=== PATIENT | male | born 1995 | race African-American/Black ===

== ENCOUNTER 2016-09-14 11:24 | Emergency (ER) | payer SELFPAY ==
--- NOTE | 2016-09-14 11:47 | ERRECORD ---
[facility] EMERGENCY RECORD HPI URI (11:36 MBRI) CHIEF COMPLAINT: Patient presents for evaluation of sore throat, Patient presents for evaluation of nasal congestion, Patient presents for evaluation of cough. HISTORIAN: History provided by patient. LOCATION: Symptoms are generalized. QUALITY: Pain is dull in nature, described as aching. SEVERITY: Maximum severity of symptoms mild, Currently symptoms are mild. TIME COURSE: Gradual onset of symptoms, 3, days priror to arrival, There has been no change in the patient's symptoms over time. ASSOCIATED WITH: No associated chest pain, No associated chills, No associated fever, No associated headache, No associated neck pain, No associated shortness of breath. EXACERBATED BY: Patient's condition exacerbated by nothing. RELIEVED BY: Patient's condition relieved by nothing. ROS (11:36 MBRI) CONSTITUTIONAL: Negative constitutional review of systems, Historian denies chills, denies fever. EYES: Negative eye review of systems. ENT: Historian denies otalgia, reports rhinorrhea, reports sinus pain, reports sore throat. CARDIOVASCULAR: Historian denies chest pain, denies dyspnea on exertion. RESPIRATORY: Historian reports cough, denies shortness of breath, reports sputum, denies stridor, denies wheezing. GI: Negative gastrointestinal review of systems, Historian denies abdominal pain, denies diarrhea, denies nausea, denies vomiting. MUSCULOSKELETAL: Historian denies injury, Denies any musculoskeletal pain. SKIN: Negative skin review of systems, Historian denies skin changes. PAST MEDICAL HISTORY (11:30 KMOR) MEDICAL HISTORY: Flu vaccine not up to date, Tetanus immunization up to date, Pneumococcal vaccine not up to date, No past medical history,. MALE SURGICAL HISTORY: Patient has no surgical history. PSYCHIATRIC HISTORY: No previous psychiatric history. SOCIAL HISTORY: Patient denies alcohol use, Patient denies drug use, Patient has no smoking history. KNOWN ALLERGIES No Known Drug Allergies CURRENT MEDICATIONS (11:28 KMOR) None &a-1R&a+25V*p+0X*[id number]*c202B*c15G*c2P*p-0X&a-25V&a+1R Name: Venancio, Jeanne Song : 1995 M21 MedRec: [id number] AcctNum: [id number] Prepared: WedSep 14, 2016 11:45 by Interface Page 1 of 3 pMD [facility] EMERGENCY RECORD VITAL SIGNS (11:28 KMOR) VITAL SIGNS: BP: 123/78, Pulse: 74, Resp: 18, Temp: 98.1 (Oral), Pain: 0, O2 sat: 98 on Room Air, Time: 09/14/2016 11:28. PHYSICAL EXAM (11:36 MBRI) CONSTITUTIONAL: Vital Signs Reviewed, Nursing notes reviewed. HEAD: Head exam included findings of head atraumatic, normocephalic. EYES: Eye exam included findings of eyelids normal to inspection, Pupils equally round and reactive to light, Extraocular muscles intact. ENT: Ear exam normal, external ear normal, tympanic membranes normal, Pharynx exam normal. NECK: Neck exam normal, no cervical adenopathy, no tenderness. RESPIRATORY CHEST: Respiratory exam included findings of no respiratory distress, Breath sounds clear, No wheezing, No rales, No rhonchi. CARDIOVASCULAR: Cardiovascular exam included findings of heart rate regular rate and rhythm, Heart sounds normal, Carotids normal. DOCTOR NOTES (11:39 MBRI) TEXT: After evaluation the patient appears to be resting comfortably. No resp distress and lung exam was clear. No impending resp failure or airway issues are present at this time. Pt appears to have symptoms consistent with viral respiratory illness and I have rec symptomatic type treatments. I have discussed the continued treatment with the patient and have answered questions. I have discussed the strict reasons for return and follow-up and medication needs have been addressed. The patient is stable for d/c home at this time. PROBLEM LIST No recorded problems DIAGNOSIS (11:40 MBRI) FINAL: PRIMARY: Acute URI. PRESCRIPTION (11:38 MBRI) Motrin: TABLET : 800 mg : ORAL : Quantity: 1 Unit: tab(s) Route: ORAL Schedule: every 8 hours PRN Dispense: 30 May substitute. Refills: No Refills . NOTES: No refills. Mucinex DM: TABLET,EXTENDED RELEASE MULTIPHASE 12 HR : 1,200 mg-60 mg : ORAL : Quantity: 1 Unit: tab(s) Route: ORAL Schedule: every 12 hours Dispense: 20 May substitute. Refills: No Refills . NOTES: ^s=No refills No refills. DISPOSITION &a-1R&a+25V*p+0X*r4487Q*c202B*c15G*c2P*p-0X&a-25V&a+1R Name: Jeanne Craft : 1995 M21 MedRec: [id number] AcctNum: [id number] Prepared: WedSep 14, 2016 11:45 by Interface Page 2 of 3 pMD [facility] EMERGENCY RECORD PATIENT: Disposition Type: Discharge, Disposition: *Discharge Home, Condition: Good. (11:40 MBRI) Patient left the department. (11:44 LGIB) Nino: KMOR=ASAEL Auguste, Teresita LGIB=ASAEL Spencer, Lenora MBRI=DO Morales Matthew &a-1R&a+25V*p+0X*e3338E*c202B*c15G*c2P*p-0X&a-25V&a+1R Name: Jeanne Craft : 1995 M21 MedRec: [id number] AcctNum: [id number] Prepared: WedSep 14, 2016 11:45 by Interface Page 3 of 3 pMD MTDD
--- NOTE | 2016-09-14 11:47 | PICIS ---
[facility] EMERGENCY RECORD TRIAGE (WedSep 14, 2016 11:28 KMOR) TRIAGE NOTES: Cough and congestion, chest pain and runny nose for 2 days. (WedSep 14, 2016 11:28 KMOR) PATIENT: NAME: Jeanne Craft, AGE: 21, GENDER: male, : Wed1995, TIME OF GREET: WedSep 14, 2016 11:25, PREFERRED LANGUAGE: Georgian, ETHNICITY: Not or , ECODE BILLING MAP: [facility], SSN: [id number], Zip Code: [address], KG WEIGHT: 79.38, PHONE: , , , PERSON ID: [id number], PAYMENT: [employer] Self Pay, PCP: DO HINTON JOHN SCOTT. (WedSep 14, 2016 11:28 KMOR) COMPLAINT: Cold symptoms. (WedSep 14, 2016 11:28 KMOR) ADMISSION: URGENCY: 4 Non Urgent, ADMISSION SOURCE: Home, TRANSPORT: CAR, BED: ER -02. (WedSep 14, 2016 11:28 KMOR) ASSESSMENT: Assessment: A&OX4. RR EVEN AND UNLABORED., Symptoms began 2 days ago. (11:30 KMOR) PAIN: No complaint of pain. (11:30 KMOR) IMMUNIZATIONS: Flu vaccine not up to date, Tetanus immunization up to date, Pneumococcal vaccine not up to date. (11:30 KMOR) SIRS SCORING: Heart Rate 55-109 (0), Temp range 96.8-101.1 (0), respiratory rate 12-24 (0), Mental Status altered: no (0), Infection or Suspected Infection: No. (11:30 KMOR) TRIAGE SCREENING: Patient denies suicidal ideation, Patient denies presence of domestic violence. (11:30 KMOR) TREATMENTS IN PROGRESS: Medications Given, None today. (11:30 KMOR) PROVIDERS: TRIAGE NURSE: Teresita Auguste RN. (WedSep 14, 2016 11:28 KMOR) VITAL SIGNS: BP 123/78, Pulse 74, Resp 18, Temp 98.1, (Oral), Pain 0, O2 Sat 98, on Room Air, Time 09/14/2016 11:28. (11:28 KMOR) PREVIOUS VISIT ALLERGIES: No Known Drug Allergies. (WedSep 14, 2016 11:28 KMOR) No Known Drug Allergies. (11:30 KMOR) KNOWN ALLERGIES No Known Drug Allergies CURRENT MEDICATIONS (11:28 KMOR) None VITAL SIGNS (11:28 KMOR) VITAL SIGNS: BP: 123/78, Pulse: 74, Resp: 18, Temp: 98.1 (Oral), Pain: 0, O2 sat: 98 on Room Air, Time: 09/14/2016 11:28. NURSING ASSESSMENT: RESPIRATORY /CHEST (11:31 LGIB) CONSTITUTIONAL: Complex assessment performed, Patient arrives ambulatory, Gait steady, History obtained from patient, Patient appears comfortable, Patient cooperative, Patient alert, Oriented to person, place and time, Skin warm, Skin dry, Skin normal in color, Mucous membranes pink, Mucous membranes moist, Patient is &a-1R&a+25V*p+0X*y5177Y*c202B*c15G*c2P*p-0X&a-25V&a+1R Name: Jeanne Craft : 1995 M21 MedRec: [id number] AcctNum: [id number] Prepared: WedSep 14, 2016 11:45 by Interface Page 1 of 4 pMD [facility] EMERGENCY RECORD well-groomed, Patient complains of cough, runny nose. PAIN: Patient rates pain as 0 out of 10. RESPIRATORY/CHEST: Breath sounds clear, Respiratory assessment findings include respiratory effort easy, Respirations regular, Conversing normally, Neck and chest exam findings include trachea midline, Chest expansion equal, Chest movement symmetrical, no signs of distress, no retractions noted, no cyanosis, Associated with cough, productive of, green sputum, no associated fever. ENT: Nasal assessment findings include nose normal to inspection, Mouth and throat assessment findings include mouth inspection normal. SAFETY: Side rails up, Cart/Stretcher in lowest position, Call light within reach, Hospital ID band on. NURSING PROCEDURE: DISCHARGE NOTE (11:44 LGIB) DISCHARGE: Patient discharged to home, ambulating without assistance, driving self, unaccompanied, Summary of Care printed/ provided, Patient requested and was provided an electronic copy of Discharge Instructions, Discharge instructions given to patient, Simple or moderate discharge teaching performed, Prescriptions given and instructions on side effects given, Above person(s) verbalized understanding of discharge instructions and follow-up care, Patient treated and evaluated by physician. BELONGINGS: Belongings and valuables with patient at time of discharge include:, Belongings remain with patient, Valuables remain with patient. NURSING PROCEDURE: NURSE NOTES (11:32 LGIB) NURSES NOTES: Patient examined by physician. HPI URI (11:36 MBRI) CHIEF COMPLAINT: Patient presents for evaluation of sore throat, Patient presents for evaluation of nasal congestion, Patient presents for evaluation of cough. HISTORIAN: History provided by patient. LOCATION: Symptoms are generalized. QUALITY: Pain is dull in nature, described as aching. SEVERITY: Maximum severity of symptoms mild, Currently symptoms are mild. TIME COURSE: Gradual onset of symptoms, 3, days priror to arrival, There has been no change in the patient's symptoms over time. ASSOCIATED WITH: No associated chest pain, No associated chills, No associated fever, No associated headache, No associated neck pain, No associated shortness of breath. EXACERBATED BY: Patient's condition exacerbated by nothing. RELIEVED BY: Patient's condition relieved by nothing. ROS (11:36 MBRI) CONSTITUTIONAL: Negative constitutional review of systems, Historian denies chills, denies fever. &a-1R&a+25V*p+0X*e2270N*c202B*c15G*c2P*p-0X&a-25V&a+1R Name: Jeanne Craft : 1995 M21 MedRec: [id number] AcctNum: [id number] Prepared: WedSep 14, 2016 11:45 by Interface Page 2 of 4 pMD [facility] EMERGENCY RECORD EYES: Negative eye review of systems. ENT: Historian denies otalgia, reports rhinorrhea, reports sinus pain, reports sore throat. CARDIOVASCULAR: Historian denies chest pain, denies dyspnea on exertion. RESPIRATORY: Historian reports cough, denies shortness of breath, reports sputum, denies stridor, denies wheezing. GI: Negative gastrointestinal review of systems, Historian denies abdominal pain, denies diarrhea, denies nausea, denies vomiting. MUSCULOSKELETAL: Historian denies injury, Denies any musculoskeletal pain. SKIN: Negative skin review of systems, Historian denies skin changes. PAST MEDICAL HISTORY (11:30 KMOR) MEDICAL HISTORY: Flu vaccine not up to date, Tetanus immunization up to date, Pneumococcal vaccine not up to date, No past medical history,. MALE SURGICAL HISTORY: Patient has no surgical history. PSYCHIATRIC HISTORY: No previous psychiatric history. SOCIAL HISTORY: Patient denies alcohol use, Patient denies drug use, Patient has no smoking history. PHYSICAL EXAM (11:36 MBRI) CONSTITUTIONAL: Vital Signs Reviewed, Nursing notes reviewed. HEAD: Head exam included findings of head atraumatic, normocephalic. EYES: Eye exam included findings of eyelids normal to inspection, Pupils equally round and reactive to light, Extraocular muscles intact. ENT: Ear exam normal, external ear normal, tympanic membranes normal, Pharynx exam normal. NECK: Neck exam normal, no cervical adenopathy, no tenderness. RESPIRATORY CHEST: Respiratory exam included findings of no respiratory distress, Breath sounds clear, No wheezing, No rales, No rhonchi. CARDIOVASCULAR: Cardiovascular exam included findings of heart rate regular rate and rhythm, Heart sounds normal, Carotids normal. EVENTS TRANSFER: Triage to Emergency Emergency Room -02. (WedSep 14, 2016 11:28 KMOR) Removed from Emergency Emergency Room -02. (11:44 LGIB) O2SAT INTERPRETATION (11:37 MBRI) O2SAT: Oxygen saturation interpretation: Normal. DOCTOR NOTES (11:39 MBRI) TEXT: After evaluation the patient appears to be resting &a-1R&a+25V*p+0X*p4045D*c202B*c15G*c2P*p-0X&a-25V&a+1R Name: Jeanne Craft : 1995 M21 MedRec: [id number] AcctNum: [id number] Prepared: WedSep 14, 2016 11:45 by Interface Page 3 of 4 pMD [facility] EMERGENCY RECORD comfortably. No resp distress and lung exam was clear. No impending resp failure or airway issues are present at this time. Pt appears to have symptoms consistent with viral respiratory illness and I have rec symptomatic type treatments. I have discussed the continued treatment with the patient and have answered questions. I have discussed the strict reasons for return and follow-up and medication needs have been addressed. The patient is stable for d/c home at this time. PROBLEM LIST No recorded problems DIAGNOSIS (11:40 MBRI) FINAL: PRIMARY: Acute URI. DISPOSITION PATIENT: Disposition Type: Discharge, Disposition: *Discharge Home, Condition: Good. (11:40 MBRI) Patient left the department. (11:44 LGIB) INSTRUCTION (11:41 LGIB) DISCHARGE: URI NO ANTIBIOTIC TREATMENT ADULT. FOLLOWUP: DO MARY JANE, CHACE PINEDA, [facility], [address] [place] [address], , Follow up with Primary Care Physician as needed. SPECIAL: Please return for any further issues or concerns, we would be happy to see you. We hope you feel better soon. Follow-up with your primary physician as needed Tylenol or Advil for Pain Take Tylenol or Advil for Fever above 101 Oral. PRESCRIPTION (11:38 MBRI) Motrin: TABLET : 800 mg : ORAL : Quantity: 1 Unit: tab(s) Route: ORAL Schedule: every 8 hours PRN Dispense: 30 May substitute. Refills: No Refills . NOTES: No refills. Mucinex DM: TABLET,EXTENDED RELEASE MULTIPHASE 12 HR : 1,200 mg-60 mg : ORAL : Quantity: 1 Unit: tab(s) Route: ORAL Schedule: every 12 hours Dispense: 20 May substitute. Refills: No Refills . NOTES: ^s=No refills No refills. Nino: KMOR=ASAEL Auguste, Teresita LGIB=ASAEL Spencer, Lenora MBRI=DO Morales Matthew &a-1R&a+25V*p+0X*h2541H*c202B*c15G*c2P*p-0X&a-25V&a+1R Name: VenancioJeanne : 1995 M21 MedRec: [id number] AcctNum: [id number] Prepared: WedSep 14, 2016 11:45 by Interface Page 4 of 4 pMD [facility] MEDICATION RECONCILIATION You were seen in the Emergency Department on: WedSep 14, 2016 KNOWN ALLERGIES No Known Drug Allergies HOME MEDICATIONS None Notes from the emergency department Reviewed with patient PRESCRIPTIONS (2) Printed (2) Motrin : TABLET : 800 mg : ORAL Quantity: 1, Unit: tab(s), Route: ORAL, Schedule: every 8 hours PRN, Dispense: 30 &a-1R&a+25V*p+0X*i0165U*c202B*c15G*c2P*p-0X&a-25V&a+1R Name: Jeanne Craft : 1995 M21 MedRec: [id number] AcctNum: [id number] Prepared: WedSep 14, 2016 11:45 by Interface pMNarayan [place]
== END 2016-09-14 11:45 | disposition home or self-care (01) ==
LOC: BURERS 11:24
DX: J06.9 Acute upper respiratory infection, unspecified (principal)
CPT/HCPCS: 99283

== ENCOUNTER 2017-12-06 22:48 | Emergency (ER) | payer SELFPAY ==
[2017-12-06] MEDS ORDERED: Tobramycin Sulfate 0.3% Ophth Susp 5 ml Bottle ONE (23:02)
== END 2017-12-06 23:15 | disposition home or self-care (01) ==
LOC: BURERS 22:48
DX: S01.112A Laceration without foreign body of left eyelid and periocular area, initial encounter (principal); W22.8XXA Striking against or struck by other objects, initial encounter
CPT/HCPCS: 99282

== ENCOUNTER 2018-12-19 22:23 | Emergency (ER) | payer BC, SELFPAY | END 2018-12-19 22:40 | disposition home or self-care (01) | LOC: BURERS 22:23 | DX: B86 Scabies (principal) | CPT/HCPCS: 99282 ==

== ENCOUNTER 2019-05-29 17:23 | Emergency (ER) | payer BC, SELFPAY ==
[2019-05-29] MEDS ORDERED: Ibuprofen 800 MG TAB ONE (18:12)
[2019-05-29] MEDS ORDERED: predniSONE 20 MG TAB ONE (18:12)
== END 2019-05-29 18:17 | disposition home or self-care (01) ==
LOC: BURERS 17:23
DX: J11.1 Influenza due to unidentified influenza virus with other respiratory manifestations (principal)
CPT/HCPCS: 99283; J7512

== ENCOUNTER 2020-04-03 12:33 | Emergency (ER) | payer OTHER, SELFPAY ==
[2020-04-03 17:52] LABS: Syphilis Antibody Nonreactive (Nonreactive); Syphilis Antibody Index 0.07 S/CO (<1.00 Non-Reactive)
[2020-04-04 13:47] LABS: SARS-CoV-2 MS2 Positive; SARS-CoV-2 N Gene Negative; SARS-CoV-2 S Gene Negative; SARS-CoV-2 by NAA Not Detected (NotDetected); SARS-CoV-2 orf1ab Negative
[2020-04-04 22:55] LABS: Chlam.trachomatis by PCR,Urine Not Detected (NotDetected)
== END 2020-04-03 13:50 | disposition home or self-care (01) ==
LOC: BURERS 12:33
DX: A60.01 Herpesviral infection of penis (principal); Z20.828 Contact with and (suspected) exposure to other viral communicable diseases
CPT/HCPCS: 36415; 86780; 87252; 87491; 87591; 87635; 99284; U0003

== ENCOUNTER 2020-09-17 13:22 | Emergency (ER) | payer OTHER, SELFPAY | END 2020-09-17 13:50 | disposition home or self-care (01) | LOC: BURERS 13:22 | DX: R07.9 Chest pain, unspecified (principal); R10.9 Unspecified abdominal pain | CPT/HCPCS: 99281 ==

== ENCOUNTER 2021-07-29 08:31 | Emergency (ER) | payer SELFPAY ==
[2021-07-29] MEDS ORDERED: diphenhydrAMINE 25 MG CAP ONE (09:47)
[2021-07-29] MEDS ORDERED: Metoclopramide HCl 10 MG TAB ONE (09:47)
[2021-07-29 09:56] LABS: Bilirubin Negative (Negative); Blood, Urine Negative (Negative); Clarity Clear (Clear); Glucose, Urine (Dipstick) Negative (Negative); Ketone, Urine Negative (Negative); Leukocyte Negative (Negative); Nitrite Negative (Negative); Protein, Urine (Dipstick) Negative (Neg-Trace); pH, Urine 7.5 (5.0-9.0)
== END 2021-07-29 10:27 | disposition home or self-care (01) ==
LOC: BURERS 08:31
DX: R51.9 Headache, unspecified (principal)
CPT/HCPCS: 70450; 81003

== ENCOUNTER 2022-05-03 23:02 | Emergency (ER) | payer OTHER, SELFPAY ==
[2022-05-03] MEDS ORDERED: HYDROcodone/Acetaminophen 5/325 mg Tablet ONE (23:57)
[2022-05-03] MEDS ORDERED: Ibuprofen 200 MG TAB ONE (23:57)
== END 2022-05-03 23:54 | disposition home or self-care (01) ==
LOC: BURERS 23:02
DX: S83.412A Sprain of medial collateral ligament of left knee, initial encounter (principal); X50.9XXA Other and unspecified overexertion or strenuous movements or postures, initial encounter; Y93.67 Activity, basketball

== ENCOUNTER 2024-09-03 06:52 | Emergency (ER) | payer BC ==
[2024-09-03 08:12] LABS: #Basophils 0.1 thou/uL (0.0-0.2); #Eosinophils 0.1 thou/uL (0.0-0.7); #Lymphocytes 1.6 thou/uL (1.20-3.40); #Monocytes 0.5 thou/uL (0.11-0.59); %Eosinophils 1.1 % (0.0-10.0); %Lymphocytes 24.9 % (21.0-51.0); %Monocytes 8.4 % (0.0-10.0); %Neutrophils 64.6 % (42.0-75.0); Hematocrit 43.4 % (42.0-52.0); Hemoglobin 14.8 g/dL (14.0-18.0); Mean Corpuscular Hemoglobin 30.4 pg (27.0-31.0); Mean Corpuscular Volume 89.3 fl (78.0-98.0); Mean Platelet Volume 7.2 fL (7.4-10.4); Platelet Count 189 10x3/uL (130-400); RBC Distribution Width 11.2 % (11.5-14.5); Red Blood Cell (RBC) Count 4.86 mill/uL (4.70-6.10); White Blood Cell (WBC) Count 6.3 10x3/uL (4.8-10.8)
[2024-09-03 08:29] LABS: ALT (SGPT) 14 U/L (8-55); AST (SGOT) 16 U/L (5-34); Alkaline Phosphatase 44 U/L (40-110); Anion Gap 12 mmol/L (10-20); BUN (Urea Nitrogen) 15 mg/dL (8.9-20.6); Bilirubin, Total 1.2 mg/dL (0.2-1.2); Calc. Creatinine Clearance 0 mL/min (70-130); Calcium 9.8 mg/dL (7.8-10.44); Carbon Dioxide 28 mmol/L (22-29); Chloride 104 mmol/L (98-107); Estimated GFR 101; Globulin 3.6 g/dL (2.4-3.5); Glucose 80 mg/dL (70-105); Protein, Total 7.6 g/dL (6.0-8.3); Sodium 140 mmol/L (136-145)
[2024-09-03 08:38] LABS: Bilirubin Negative (Negative); Blood, Urine Trace (Negative); Clarity Clear (Clear); Glucose, Urine (Dipstick) Negative (Negative); Ketone, Urine Negative (Negative); Leukocyte Negative (Negative); Nitrite Negative (Negative); Protein, Urine (Dipstick) Negative (Neg-Trace); Specific Gravity, Urine 1.025 (1.005-1.030); Urobilinogen 0.2 mg/dL (Less than 2); pH, Urine 5.5 (5.0-9.0)
[2024-09-03 08:45] LABS: Bacteria/HPF None Seen HPF (None Seen); CAUTI Indications for Culture Pelvic or flank pain; Mucous/LPF Rare LPF (<2+); RBC/HPF 0-3 HPF (0-3); Squamous Epithelial None Seen HPF (0-3); WBC/HPF None Seen HPF (0-3)
[2024-09-03 08:46] LABS: Urine Culture Reflex No No
== END 2024-09-03 08:55 | disposition home or self-care (01) ==
LOC: BURERS 06:52
DX: M54.50 Low back pain, unspecified (principal); F17.200 Nicotine dependence, unspecified, uncomplicated
CPT/HCPCS: 36415; 80053; 81001; 85025; 99283

== ENCOUNTER 2025-05-15 08:51 | Emergency (ER) | payer BC ==
[2025-05-15] MEDS ORDERED: Dexamethasone 10 MG/ML VIAL ONE (09:48)
[2025-05-15] MEDS ORDERED: Ketorolac Tromethamine 30 MG (1 mL) VIAL ONE (09:48)
== END 2025-05-15 10:06 | disposition home or self-care (01) ==
LOC: BURERS 08:51
DX: J06.9 Acute upper respiratory infection, unspecified (principal); B35.9 Dermatophytosis, unspecified; F17.290 Nicotine dependence, other tobacco product, uncomplicated
CPT/HCPCS: 71045; 96372; J1100; J1885